=== PATIENT | male | born 1945 | race Caucasian/White ===

== ENCOUNTER 2016-11-24 13:44 | Emergency (ER) | payer MEDICARE, OTHER ==
--- NOTE | 2016-11-24 14:33 | ER NURSING DOCUMENTATION ---
Nurse's Notes [facility] Name:Jcarlos Heredia Age:71 yrs Sex:Male :1945 Arrival Date:11/24/2016 Time:13:44 BedTrauma-B Private MD: Diagnosis:Acute Low Back Pain;Sacrum - Coccyx Contusion Presentation: 11/24 13:53 Acuity: SUHAIL 3 st 13:58 Presenting complaint: Patient states: Patient fell off of a horse when the saddle slid lp sideways. Transition of care: Home. Notified ED Physician of Dr. Henry notified. 13:58 Method Of Arrival: Private Vehicle lp Triage Assessment: 14:03 General: Appears in no apparent distress, Behavior is appropriate for age. Pain: lp Complains of pain in lumbar area and sacrum. EENT: No deficits noted. Neuro: Level of Consciousness is awake, alert, Oriented to person, place, time, event, Mold Preparer are equal bilaterally Moves all extremities. Speech is normal. Neuro:. Cardiovascular: No deficits noted. Historical: - Allergies: Morphine; Vicodin; - Home Meds: 1. amlodipine-valsartan 5-320 mg oral tab 1 tab once daily for Hypertension 2. simvastatin 20 mg oral tab 1 tab once daily in the evening 3. levothyroxine 25 mcg oral cap 1 cap once daily 4. aspirin 81 mg oral tab 1 tab once daily 5. metformin 500 mg oral tab 1 tab 2 times per day for Type 2 Diabetes Mellitus - PMHx: Hypertension; Diabetes - NIDDM; HYPOTHYROIDISM; Hyperlipidemia; - PSHx: Tonsillectomy; HERNIA REPAIR; CABG; - Tetanus: < 10 years. - Ebola Screening: : Patient negative for fever greater than or equal to 101.5 degrees Fahrenheit, and additional compatible Ebola Virus Disease symptoms. Patient denies exposure to infectious person. Patient denies travel to an Ebola-affected area in the 21 days before illness onset. . - Immunization history: Pneumococcal vaccine is up to date, Flu Vaccine < 1 year. - Social history: Smoking status: Patient states was never smoker of tobacco. Screenin:09 Infectious Disease Risk None. Abuse screen: Denies threats or abuse. Denies injuries lp from another. Nutritional screening: No deficits noted. Assessment: 14:09 See Triage Assessment done by same RN. lp Vital Signs: 13:59 BP 133 / 69; Pulse 63; Resp 16; Temp 98.0(TE); Pulse Ox 90% on R/A; Weight 97.52 kg; lp Height 5 ft. 8 in. (172.72 cm); Pain 6/10; 14:23 BP 117 / 56; Pulse 66; Resp 16; Pulse Ox 92% on R/A; Pain 6/10; lp 13:59 Body Mass Index 32.69 (97.52 kg, 172.72 cm) lp Prateek Coma Score: 14:00 Eye Response: spontaneous(4). Verbal Response: oriented(5). Motor Response: obeys cd commands(6). Total: 15. ED Course: 13:49 Patient arrived in ED. jl 13:[address] 13:58 Sonia Willis, SADE is Primary Nurse. lp 14:00 Patient moved to radiology. dnn 14:[address] Henry notified. lp 14:10 Valuables Remains with patient Patient has correct armband on for positive lp identification. Placed in gown. Bed in low position. Call light in reach. Side rails up X 1. Pulse ox on. 14:15 Patient moved back from radiology. dnn 14:17 Ice pack to injury. lp 14:18 Samir Henry MD is Attending Physician. cd Administered Medications: No medications were administered Outcome: 14:23 Discharged to home ambulatory. lp 14:23 Condition: good 14:23 Instructed on discharge instructions, follow up and referral plans. medication usage, ice and rest 14:28 Discharge ordered by MD. cd 14:32 Patient left the ED. 11/25 13:48 Discharge F/U Call: Unable to reach: no answer 11/26 10:30 Discharge F/U Call: Unable to reach: no answer st Signatures: Tess Kidd RN RN st Pavlish, Lena, RN RN lp Daley, Chris, MD MD cd Norman, David dnn Janzen, Sarah sj Lietz, Jeff jl
--- NOTE | 2016-11-24 14:33 | ER PHYSICIAN DOCUMENTATION ---
Physician Documentation [facility] Name:Jcarlos Heredia Age:71 yrs Sex:Male :1945 Arrival Date:11/24/2016 Time:13:44 BedTrauma-B Private MD: Samir Campuzano Disposition: 11/24/16 14:28 Discharged to Home/Self Care. Impression: Acute Low Back Pain, Sacrum - Coccyx Contusion. - Condition is Good. - Discharge Instructions: BACK PAIN (Acute or Chronic), CONTUSION, Coccyx/Sacrum. - Medical Reconciliation form form. - Follow up: Private Physician; When: 7 - 10 days; Reason: Recheck today's complaints, Continuance of care. - Problem is new. - Symptoms are unchanged. HPI: 11/24 13:55 This 71 yrs old Male presents to ER via Private Vehicle with complaints of cd Low Back Pain. 13:55 The patient presents with pain that is acute, and an injury. The symptoms are located cd in the low back, coccyx area. The pain does not radiate. The problem was sustained outdoors, during a fall, his saddle slowly slid off his horse sideways and he fell to the ground. Associated signs and symptoms: The patient has no apparent associated signs or symptoms. Historical: - Allergies: Morphine; Vicodin; - Home Meds: 1. amlodipine-valsartan 5-320 mg oral tab 1 tab once daily for Hypertension 2. simvastatin 20 mg oral tab 1 tab once daily in the evening 3. levothyroxine 25 mcg oral cap 1 cap once daily 4. aspirin 81 mg oral tab 1 tab once daily 5. metformin 500 mg oral tab 1 tab 2 times per day for Type 2 Diabetes Mellitus - PMHx: Hypertension; Diabetes - NIDDM; HYPOTHYROIDISM; Hyperlipidemia; - PSHx: Tonsillectomy; HERNIA REPAIR; CABG; - Tetanus: < 10 years. - Ebola Screening: : Patient negative for fever greater than or equal to 101.5 degrees Fahrenheit, and additional compatible Ebola Virus Disease symptoms. Patient denies exposure to infectious person. Patient denies travel to an Ebola-affected area in the 21 days before illness onset. . - Immunization history: Pneumococcal vaccine is up to date, Flu Vaccine < 1 year. - Social history: Smoking status: Patient states was never smoker of tobacco. ROS: 14:00 Constitutional: Negative for body aches, chills, fever. cd 14:00 Back: Positive for pain at rest, of the sacrum. 14:00 : Positive for pelvic pain, Negative for urinary symptoms, flank pain. Exam: 14:00 Constitutional: This is a well developed, well nourished patient who is awake, alert, cd and in no acute distress. Neck: Trachea midline, no thyromegaly or masses palpated, and no cervical lymphadenopathy. Supple, full range of motion without nuchal rigidity, or vertebral point tenderness. No Meningismus. Chest/axilla: Normal chest wall appearance and motion. Nontender with no deformity. No lesions are appreciated. Cardiovascular: Regular rate and rhythm with a normal S1 and S2. No gallops, murmurs, or rubs. Normal PMI, no JVD. No pulse deficits. Respiratory: Lungs have equal breath sounds bilaterally, clear to auscultation and percussion. No rales, rhonchi or wheezes noted. No increased work of breathing, no retractions or nasal flaring. 14:00 Abdomen/GI: Soft, non-tender, with normal bowel sounds. No distension or tympany. No cd guarding or rebound. No evidence of tenderness throughout. 14:00 Back: pain, that is mild, of the sacrum, ROM is normal, normal spinal alignment noted, CVA tenderness, is absent. 14:00 Neuro: Exam negative for acute changes. 14:00 Back: vertebral tenderness, is not appreciated, muscle spasm, is not present, Straight cd leg raises: of both lower extremities does not illicit pain. 14:00 MS/ Extremity: Pulses equal, no cyanosis. Neurovascular intact. Full, normal range cd of motion. Vital Signs: 13:59 BP 133 / 69; Pulse 63; Resp 16; Temp 98.0(TE); Pulse Ox 90% on R/A; Weight 97.52 kg; lp Height 5 ft. 8 in. (172.72 cm); Pain 6/10; 14:23 BP 117 / 56; Pulse 66; Resp 16; Pulse Ox 92% on R/A; Pain 6/10; lp 13:59 Body Mass Index 32.69 (97.52 kg, 172.72 cm) lp Prateek Coma Score: 14:00 Eye Response: spontaneous(4). Verbal Response: oriented(5). Motor Response: obeys cd commands(6). Total: 15. MDM: 14:00 Data interpreted: Pulse oximetry: on room air is 92 %. Interpretation: normal. cd 14:18 Patient medically screened. cd 14:25 Data reviewed: vital signs, nurses notes, old medical records, radiologic studies, cd plain films, and as a result, I will discharge patient. 14:26 Counseling: I had a detailed discussion with the patient and/or guardian regarding: the cd historical points, exam findings, and any diagnostic results supporting the discharge/admit diagnosis, radiology results, the need for outpatient follow up, for a recheck, with the patient's primary care provider, to return to the emergency department if symptoms worsen or persist or if there are any questions or concerns that arise at home. Response to treatment: the patient's symptoms have markedly improved after treatment. 11/25 07:44 Order name: PELVIS X-RAY;1 OR 2V [id number] EDPR 11/24 14:18 Order name: Ice Packs; Complete Time: 14:24 cd Dispensed Medications: No medications were administered Signatures: Tess Kidd, RN Sonia Mancuso RN Samir Vogel lp, MD MD cd
--- NOTE | 2016-11-24 19:41 | RADIOLOGY REPORT ---
A single limited view of the pelvis does not include the inferior aspects of the inferior pubic rami. No displaced fracture, subluxation or bony destructive change is seen. Surgical clips are noted in the left inguinal region. The visualized joints appear unremarkable. IMPRESSION: Limited examination as described demonstrates no displaced injury. Occult pelvic fractures are common in this age group and may require further evaluation and/or followup for detection. The findings were personally reviewed with Dr. Henry upon completion of the examination. POPPY
== END 2016-11-24 14:33 | disposition home or self-care (01) ==
LOC: ER 13:44
DX: S30.0XXA Contusion of lower back and pelvis, initial encounter (principal); V80.010A Animal-rider injured by fall from or being thrown from horse in noncollision accident, initial encounter; Y92.838 Other recreation area as the place of occurrence of the external cause; Y93.52 Activity, horseback riding; I10 Essential (primary) hypertension; E11.9 Type 2 diabetes mellitus without complications; Z79.899 Other long term (current) drug therapy; Z79.82 Long term (current) use of aspirin
CPT/HCPCS: 72170; 99283